=== PATIENT | female | born 1980 | race Caucasian/White ===

== ENCOUNTER 2017-06-05 12:16 | Inpatient (IN) | payer OTHER, BC ==
[2017-06-05] MEDS ORDERED: Sodium Chloride 0.9% 10 ML Syringe FLUSH PRN (13:18)
[2017-06-05] MEDS ORDERED: Misoprostol 200 MCG Tab PO PRN (13:18)
[2017-06-05] MEDS ORDERED: Carboprost Tromethamine 250 MCG/1 ML Amp IM PRN (13:18)
[2017-06-05] MEDS ORDERED: Terbutaline 1 MG/ML SDV SUBCUT PRN (13:18)
[2017-06-05] MEDS ORDERED: Butorphanol 1 MG/ML SDV IVPUSH PRN (13:18)
[2017-06-05] MEDS ORDERED: Sodium Chloride 0.9% 2.5 ML Syringe FLUSH PRN (13:18)
[2017-06-05] MEDS ORDERED: Water For Irrigation,Sterile 1,000 ML Container IRR PRN (13:18)
[2017-06-05] MEDS ORDERED: Methylergonovine 0.2 MG/1 ML Amp IM PRN (13:18)
[2017-06-05] MEDS ORDERED: Nalbuphine 10 MG/1 ML Vial IVPUSH PRN (13:18)
[2017-06-05] MEDS ORDERED: Lidocaine 1% 50 ML MDV INJECT PRN (13:18)
[2017-06-05] MEDS ORDERED: Oxytocin/0.9 % Sodium Chloride 30 UNIT/500 ML BAG IV SCH (13:30)
[2017-06-05] MEDS: Lactated Ringers 1,000 ML IV SCH (14:15)
[2017-06-05 20:52] LABS: CHLORIDE,CL 109 mmol/L (98-110); SODIUM,NA 137 mmol/L (136-146)
[2017-06-06] MEDS ORDERED: ePHEDrine 50 MG/ML SDV ONE (00:11)
[2017-06-06] MEDS ORDERED: Ropivacaine HCl/PF 100 ML ONE (00:12)
[2017-06-06] MEDS ORDERED: fentaNYL 100 MCG/2 ML SDV ONE (00:12)
[2017-06-06] MEDS ORDERED: Ropivacaine 0.2% 2 MG/ML 20 ML SDV ONE (00:12)
[2017-06-06] MEDS: Lactated Ringers 1,000 ML IV SCH ×3 (00:25→21:21)
--- NOTE | 2017-06-06 01:03 | PCM.PRNOTE ---
- Free Text/Narrative Note: Called for a labor epidural for patient c/o labor pain. Patient identified and history reviewed. Discussed procedure and risks including bleeding, infection, nerve pain, nerve damage and unsuccessful epidural. Patient agrees. Sitting up, sterile betadine prep times 3 and sterile drape. 1% lidocaine SQ at L4 #25 Touhy advanced. Pt very sensitive to needle movement, feeling pain with initial pass on left. needle redirected x2. THAIS saline to approximately 7cm. Catheter easily advanced to 12cm. No heme no paresthesia. Test dose 3 ml 1.5% lidocaine with epinephrine 1:200,000. negative reaction. Bolus of fentanyl 100 mcg given with 4 ml 0.2% ropivicaine. Patient reports pain relief after 2 contractions. Level noted to be T10. Ephedrine 10 mg given for c/o nausea, tilted to right. follow up bp 120/72 Epidural drip of 0.2% ropivicaine and Fentanyl 2 mcg/ml started at 8 ml/hr. Use of PCEA bolus of 4 ml every 20 minutes explained to patient. Pt tolerated well pain score 7/10 to 2/10. no complications noted
--- NOTE | 2017-06-06 01:06 | PCM.PREANE ---
Preanesthetic Assessment - Procedure Proposed Procedure: labor epidural - Anesthesia/Transfusion/Family Hx Anesthesia History: No Prior Anesthesia Family History of Anesthesia Reaction: No - Review of Systems General: No Symptoms Pulmonary: No Symptoms Cardiovascular: No Symptoms Gastrointestinal: Other (gerd with ) Neurological: Other (slight lower back scoliosis per pt) Other: Reports: None - Physical Assessment Pulse: 82 O2 Sat by Pulse Oximetry: 96 Respiratory Rate: 20 Blood Pressure: 125/72 Height: 1.7 m Weight: 102.058 kg ASA Class: 2 Mental Status: Alert & Oriented x3 Dentition: Reports: Normal Dentition Thyro-Mental Finger Breadths: 3 Mouth Opening Finger Breadths: 4 ROM/Head Extension: Full Lungs: Clear to Auscultation, Normal Respiratory Effort Cardiovascular: Regular Rate, Regular Rhythm - Lab Values: Laboratory Last Values WBC 10.96 K/uL (4.0-11.0) 06/05/17 20:22 RBC 3.91 M/uL (4.30-5.90) L 06/05/17 20:22 Hgb 11.8 g/dL (12.0-16.0) L 06/05/17 20:22 Hct 34.3 % (36.0-46.0) L 06/05/17 20:22 MCV 87.7 fL (80.0-98.0) 06/05/17 20:22 MCH 30.2 pg (27.0-32.0) 06/05/17 20:22 MCHC 34.4 g/dL (31.0-37.0) 06/05/17 20:22 RDW Std Deviation 43.7 fl (28.0-62.0) 06/05/17 20:22 RDW Coeff of Priyanka 14 % (11.0-15.0) 06/05/17 20:22 Plt Count 225 K/uL (150-400) 06/05/17 20:22 MPV 8.90 fL (7.40-12.00) 06/05/17 20:22 Nucleated RBC % 0.0 /100WBC 06/05/17 20:22 Nucleated RBCs # 0 K/uL 06/05/17 20:22 INR 0.96 (0.86-1.11) 06/05/17 20:22 APTT 30.5 SEC (18.6-31.3) 06/05/17 20:22 Fibrinogen 539 mg/dL (215-411) H 06/05/17 20:22 Sodium 137 mmol/L (136-146) 06/05/17 20:22 Potassium 3.3 mmol/L (3.5-5.1) L 06/05/17 20:22 Chloride 109 mmol/L (98-110) 06/05/17 20:22 Carbon Dioxide 20 mmol/L (21-31) L 06/05/17 20:22 BUN 7 mg/dL (6.0-23.0) 06/05/17 20:22 Creatinine 0.6 mg/dL (0.6-1.5) 06/05/17 20:22 Est Cr Clr Drug Dosing 128.48 mL/min 06/05/17 20:22 Estimated GFR (MDRD) > 60.0 ml/min 06/05/17 20:22 Glucose 89 mg/dL (60-110) 06/05/17 20:22 Calcium 8.7 mg/dL (8.8-10.8) L 06/05/17 20:22 Total Bilirubin 0.2 mg/dL (0.1-1.5) 06/05/17 20:22 AST 17 IU/L (5-40) 06/05/17 20:22 ALT 15 IU/L (8-54) 06/05/17 20:22 Alkaline Phosphatase 173 (40-150) H 06/05/17 20:22 Total Protein 5.7 g/dL (6.0-8.0) L 06/05/17 20:22 Albumin 2.9 g/dL (3.5-5.0) L 06/05/17 20:22 Globulin 2.8 g/dL (2.0-3.5) 06/05/17 20:22 Albumin/Globulin Ratio 1.0 (1.3-2.8) L 06/05/17 20:22 Urine Color YELLOW 06/05/17 12:30 Urine Appearance CLEAR 06/05/17 12:30 Urine pH 6.0 (5.0-8.0) 06/05/17 12:30 Ur Specific [place] 1.025 (1.001-1.035) 06/05/17 12:30 Urine Protein TRACE mg/dL (NEGATIVE) 06/05/17 12:30 Urine Glucose (UA) NEGATIVE mg/dL (NEGATIVE) 06/05/17 12:30 Urine Ketones NEGATIVE mg/dL (NEGATIVE) 06/05/17 12:30 Urine Occult Blood NEGATIVE (NEGATIVE) 06/05/17 12:30 Urine Nitrite NEGATIVE (NEGATIVE) 06/05/17 12:30 Urine Bilirubin NEGATIVE (NEGATIVE) 06/05/17 12:30 Urine Urobilinogen 0.2 EU/dL (<2.0) 06/05/17 12:30 Ur Leukocyte Esterase NEGATIVE (NEGATIVE) 06/05/17 12:30 Blood Type B POSITIVE 06/05/17 14:07 Antibody Screen NEGATIVE 06/05/17 14:07 - Allergies Allergies/Adverse Reactions: Allergies Allergy/AdvReac Type Severity Reaction Status Date / Time amoxicillin Allergy Abdominal Verified 06/05/17 13:13 Pain - Blood Blood Available: Yes Product(s) Available: PRBC - Acknowledgements Anesthesia Type Planned: Epidural Pt an Appropriate Candidate for the Planned Anesthesia: Yes Alternatives and Risks of Anesthesia Discussed w Pt/Guardian: Yes Pt/Guardian Understands and Agrees with Anesthesia Plan: Yes PreAnesthesia Questionnaire - Past Health History Medical/Surgical History: Denies Medical/Surgical History - SUBSTANCE USE Smoking Status *Q: Former Smoker Tobacco Use Within Last Twelve Months: No Second Hand Smoke Exposure: No Recreational Drug Use History: No - CURRENT (IN HOUSE) MEDS Current Meds: Current Medications Butorphanol Tartrate (Stadol) 1 mg IVPUSH ASDIRECTED PRN PRN Reason: Pain Carboprost Tromethamine (Hemabate Ds) 250 mcg IM ASDIRECTED PRN PRN Reason: Post Hemorrhage Lactated Ringer's (Ringers, Lactated) 1,000 mls @ 150 mls/hr IV ASDIRECTED SURI Last Admin: 06/06/17 00:25 Dose: 999 mls/hr Oxytocin/Sodium Chloride (Oxytocin 30 Unit/500 Ml-Ns) 30 unit in 500 mls @ 2 mls/hr IV TITRATE SURI; 2 MUNITS/MIN PRN Reason: Protocol Last Titration: 06/05/17 23:02 Dose: 26 munits/min, 26 mls/hr Lidocaine HCl (Xylocaine 1%) 50 ml INJECT .ONCE PRN PRN Reason: Laceration repair Methylergonovine Maleate (Methergine) 0.2 mg IM ASDIRECTED PRN PRN Reason: Post Hemorrhage Misoprostol (Cytotec) 200 mcg PO .ONCE PRN PRN Reason: Post Hemorrhage Nalbuphine HCl (Nubain) 10 mg IVPUSH ASDIRECTED PRN PRN Reason: Pain (severe 7-10) Sodium Chloride (Saline Flush) 10 ml FLUSH ASDIRECTED PRN PRN Reason: Keep Vein Open Sodium Chloride (Saline Flush) 2.5 ml FLUSH ASDIRECTED PRN PRN Reason: Keep Vein Open Sterile Water (Sterile Water For Irrigation) 1,000 ml IRR ASDIRECTED PRN PRN Reason: delivery Terbutaline Sulfate (Brethine) 0.25 mg SUBCUT ASDIRECTED PRN PRN Reason: Tacysystole Discontinued Medications Ephedrine Sulfate (Ephedrine Sulfate) Confirm Administered Dose 50 mg .ROUTE .STK-MED ONE Stop: 06/06/17 00:12 Fentanyl (Sublimaze) Confirm Administered Dose 300 mcg .ROUTE .STK-MED ONE Stop: 06/06/17 00:13 Ropivacaine (Naropin 0.2%) Confirm Administered Dose 100 mls @ as directed .ROUTE .STK-MED ONE Stop: 06/06/17 00:13 Ropivacaine (Naropin 0.2%) Confirm Administered Dose 20 ml .ROUTE .STK-MED ONE Stop: 06/06/17 00:13
--- NOTE | 2017-06-06 01:57 | PCM.SN ---
- Free Text/Narrative Note: called regarding high epidural level. epidural level found to be t6, rate of 0.2 % ropivicaine with Fentanyl 2 mcg/ml reduced fron 8 ml/hr to 6ml/hr. bp stable. pt on left uterine tilt
[2017-06-06] MEDS ORDERED: Acetaminophen 500 MG Tab PO ONE (08:07)
[2017-06-06] MEDS ORDERED: Ampicillin/Sulbactam Na 3 GM in Sodium Chloride 0.9% 100 ML IV SCH (08:15)
[2017-06-06] MEDS: Ampicillin/Sulbactam Na 3 GM in Sodium Chloride 0.9% 100 ML IV SCH ×4 (08:52→21:32)
[2017-06-06] MEDS ORDERED: Ibuprofen 400 MG Tab PO PRN (09:01)
[2017-06-06] MEDS ORDERED: Benzocaine/Menthol 20%-0.5% Spray 78 GM Cannister TOP PRN (09:01)
[2017-06-06] MEDS ORDERED: Lanolin 100% Cream 7 GM Tube TOP PRN (09:01)
[2017-06-06] MEDS ORDERED: Bisacodyl 10 MG Supp RECTAL PRN (09:01)
[2017-06-06] MEDS ORDERED: oxyCODONE 5 MG Tab PO PRN (09:01)
[2017-06-06] MEDS ORDERED: Docusate Sodium 100 MG Cap PO PRN (09:01)
[2017-06-06] MEDS ORDERED: Witch Hazel Medicated Pads 40/Jar TOP PRN (09:01)
[2017-06-06] MEDS ORDERED: Acetaminophen 500 MG Tab PO PRN ×2 (09:01)
--- NOTE | 2017-06-06 10:11 | OR ---
SURGEON: FABY ACOSTA DATE OF PROCEDURE: 06/06/2017 PREOPERATIVE DIAGNOSIS: A 36-year-old, 1, para 0, at 40 weeks 0 days admitted for premature rupture of membranes, GBS negative. POSTOPERATIVE DIAGNOSIS: Status post normal spontaneous vaginal delivery with premature rupture of membranes, GBS negative, chorioamnionitis. ESTIMATED BLOOD LOSS: 300. ANESTHESIA: Epidural. HISTORY: She is a 36-year-old, G1, P0, at 40 weeks 0 days, who presented with a leakage of fluid from 9 a.m. today prior to delivery. On examination, she was noted to have positive pooling and was admitted for induction of labor secondary to PROM. Pitocin was started and patient was 3, 50, -2. She was subsequently examined. She was 4, 50, -2 and the forebag was ruptured and IUPC was also placed. The Pitocin was increased all the way to 28mu. At this point, the patient wanted an epidural. Pitocin was held and patient was 5, 50, -2. After the epidural, Pitocin was then restarted. Patient recovered and Pitocin was started and titrated up to 8mu. The patient was noted to be fully dilated at about 5:50 a.m. and she was encouraged to push. The patient pushed for about an hour and during pushing the patient was found to have a fever of 101 and Unasyn and Tylenol were given and reed dipper was informed and Procedure Patient made good pushing effort and the patient delivered the head The shoulder was allowed to restitute. Anterior and posterior shoulder was delivered and the body of the was delivered. was placed about the abdomen of the mother. Delayed cord clamping was observed. Cord was clamped and placenta was delivered via controlled cord traction. The perineum was inspected and a first-degree laceration was noted which was sutured with 2-0 Caprosyn. Perineum was then inspected again and noted to be intact with good hemostasis. All needle and instrument counts were correct x2. Dr. Nur was present for the entire procedure. SPARKLE TRUONG /[id number] MEGAN
[2017-06-06] MEDS: Ibuprofen 800 MG Tab PO PRN (13:07)
[2017-06-07] MEDS: Ibuprofen 800 MG Tab PO PRN ×3 (02:59→22:22)
[2017-06-07] MEDS: Ampicillin/Sulbactam Na 3 GM in Sodium Chloride 0.9% 100 ML IV SCH ×4 (03:05→21:17)
--- NOTE | 2017-06-07 05:57 | PCM48HPAN ---
Post Anesthesia Note - EVALUATION WITHIN 48HRS OF ANESTHETIC Vital Signs in Normal Range: Yes Patient Participated in Evaluation: Yes Respiratory Function Stable: Yes Airway Patent: Yes Cardiovascular Function Stable: Yes Hydration Status Stable: Yes Pain Control Satisfactory: Yes Nausea and Vomiting Control Satisfactory: Yes Mental Status Recovered: Yes
--- NOTE | 2017-06-07 08:44 | PCM.PNPP ---
<Zulema Mcdonald - Last Filed: 06/07/17 08:39> - General Info Date of Service: 06/07/17 Functional Status: Reports: Pain Controlled, Tolerating Diet, Ambulating, Urinating - Review of Systems General: Reports: Fever. Denies: Weakness, Fatigue Pulmonary: Denies: Shortness of Breath, Pleuritic Chest Pain, Cough Cardiovascular: Denies: Chest Pain, Palpitations, Dyspnea on Exertion Gastrointestinal: Denies: Abdominal Pain Genitourinary: Denies: Dysuria - General Info Date of Service: 06/07/17 - Patient Data Vital Signs - Most Recent: Last Vital Signs Temp 38.6 C H 06/07/17 03:33 Pulse 119 H 06/07/17 03:33 Resp 16 06/07/17 03:33 BP 131/89 06/07/17 03:33 Pulse Ox 96 06/07/17 03:33 Weight - Most Recent: 102.058 kg Lab Results - Last 24 Hours: Laboratory Results - last 24 hr 06/07/17 Range/Units 05:53 WBC 16.47 H (4.0-11.0) K/uL RBC 3.91 L (4.30-5.90) M/uL Hgb 11.7 L (12.0-16.0) g/dL Hct 34.3 L (36.0-46.0) % MCV 87.7 (80.0-98.0) fL MCH 29.9 (27.0-32.0) pg MCHC 34.1 (31.0-37.0) g/dL RDW Std Deviation 44.2 (28.0-62.0) fl RDW Coeff of Priyanka 14 (11.0-15.0) % Plt Count 206 (150-400) K/uL MPV 8.50 (7.40-12.00) fL Add Manual Diff YES Neutrophils % (Manual) 88 H (48.0-80.0) % Band Neutrophils % 4 % Lymphocytes % (Manual) 4 L (16.0-40.0) % Monocytes % (Manual) 4 (0.0-15.0) % Nucleated RBC % 0.0 /100WBC Absolute Seg Neuts 14.5 H (1.4-5.7) Band Neutrophils # 0.7 Lymphocytes # (Manual) 0.7 (0.6-2.4) Monocytes # (Manual) 0.7 (0.0-0.8) Nucleated RBCs # 0 K/uL Med Orders - Current: Current Medications Acetaminophen (Tylenol Extra Strength) 500 mg PO Q4H PRN PRN Reason: Pain Acetaminophen (Tylenol Extra Strength) 1,000 mg PO Q4H PRN PRN Reason: Pain Benzocaine/Menthol (Dermoplast Pain Relief 20%-0.5% [place]) 78 gm TOP ASDIRECTED PRN PRN Reason: Perineal Comfort Measure Last Admin: 06/06/17 13:07 Dose: 1 canister Bisacodyl (Dulcolax) 10 mg RECTAL .ONCE PRN PRN Reason: Constipation Butorphanol Tartrate (Stadol) 1 mg IVPUSH ASDIRECTED PRN PRN Reason: Pain Carboprost Tromethamine (Hemabate Ds) 250 mcg IM ASDIRECTED PRN PRN Reason: Post Hemorrhage Docusate Sodium (Colace) 100 mg PO BID PRN PRN Reason: Constipation Emollient Ointment (Lansinoh Hpa) 0 gm TOP ASDIRECTED PRN PRN Reason: Sore Nipples Lactated Ringer's (Ringers, Lactated) 1,000 mls @ 150 mls/hr IV ASDIRECTED SURI Last Admin: 06/06/17 21:21 Dose: 150 mls/hr Oxytocin/Sodium Chloride (Oxytocin 30 Unit/500 Ml-Ns) 30 unit in 500 mls @ 2 mls/hr IV TITRATE SURI; 2 MUNITS/MIN PRN Reason: Protocol Last Titration: 06/06/17 03:18 Dose: 8 munits/min, 8 mls/hr Ampicillin Sodium/Sulbactam (Sodium 3 gm/ Sodium Chloride) 100 mls @ 200 mls/ hr IV Q6H SURI Last Admin: 06/07/17 03:05 Dose: 200 mls/hr Ibuprofen (Motrin) 400 mg PO Q4H PRN PRN Reason: Pain Ibuprofen (Motrin) 800 mg PO Q6H PRN PRN Reason: Pain Last Admin: 06/07/17 02:59 Dose: 800 mg Lidocaine HCl (Xylocaine 1%) 50 ml INJECT .ONCE PRN PRN Reason: Laceration repair Methylergonovine Maleate (Methergine) 0.2 mg IM ASDIRECTED PRN PRN Reason: Post Hemorrhage Misoprostol (Cytotec) 200 mcg PO .ONCE PRN PRN Reason: Post Hemorrhage Nalbuphine HCl (Nubain) 10 mg IVPUSH ASDIRECTED PRN PRN Reason: Pain (severe 7-10) Oxycodone HCl (Oxycodone) 5 mg PO Q2H PRN PRN Reason: Pain Sodium Chloride (Saline Flush) 10 ml FLUSH ASDIRECTED PRN PRN Reason: Keep Vein Open Sodium Chloride (Saline Flush) 2.5 ml FLUSH ASDIRECTED PRN PRN Reason: Keep Vein Open Sterile Water (Sterile Water For Irrigation) 1,000 ml IRR ASDIRECTED PRN PRN Reason: delivery Last Admin: 06/06/17 09:00 Dose: 1,000 ml Terbutaline Sulfate (Brethine) 0.25 mg SUBCUT ASDIRECTED PRN PRN Reason: Tacysystole [place] (Tucks) 1 pad TOP ASDIRECTED PRN PRN Reason: comfort care Last Admin: 06/06/17 13:06 Dose: 1 tub Discontinued Medications Acetaminophen (Tylenol Extra Strength) 1,000 mg PO ONETIME ONE Stop: 06/06/17 08:08 Last Admin: 06/06/17 08:35 Dose: 1,000 mg Ephedrine Sulfate (Ephedrine Sulfate) Confirm Administered Dose 50 mg .ROUTE .STK-MED ONE Stop: 06/06/17 00:12 Last Admin: 06/06/17 02:20 Dose: Not Given Fentanyl (Sublimaze) Confirm Administered Dose 300 mcg .ROUTE .STK-MED ONE Stop: 06/06/17 00:13 Last Admin: 06/06/17 02:20 Dose: Not Given Ropivacaine (Naropin 0.2%) Confirm Administered Dose 100 mls @ as directed .ROUTE .STK-MED ONE Stop: 06/06/17 00:13 Last Admin: 06/06/17 02:20 Dose: Not Given Ampicillin Sodium/Sulbactam (Sodium 3 gm/ Sodium Chloride) 100 mls @ 200 mls/ hr IV Q6H SURI Stop: 06/07/17 02:44 Last Admin: 06/06/17 14:24 Dose: Not Given Ampicillin Sodium/Sulbactam (Sodium 3 gm/ Sodium Chloride) 100 mls @ 200 mls/ hr IV Q6H [facility] Stop: 06/07/17 02:44 Last Admin: 06/06/17 14:54 Dose: 200 mls/hr Ropivacaine (Naropin 0.2%) Confirm Administered Dose 20 ml .ROUTE .STK-MED ONE Stop: 06/06/17 00:13 Last Admin: 06/06/17 02:20 Dose: Not Given - Infant Interaction Infant Disposition, : Leon in Room with Family Infant Feeding: Attempted ; Nursed Fair/Poor Support Person: - Recovery Exam Fundal Tone: Firm Fundal Level: 1 Fingerbreadths Below Umbilicus Fundal Placement: Midline Lochia Amount: Scant Lochia Color: Rubra/Red Perineum Description: Intact, Minimal Bruising/Swelling Other Perinuem Description: 1st degree laceration with repair Episiotomy/Laceration: Approximated Bladder Status: Voiding - Exam General: Alert, Oriented Neck: Supple Lungs: Clear to Auscultation, Normal Respiratory Effort Cardiovascular: Regular Rate, Regular Rhythm GI/Abdominal Exam: Normal Bowel Sounds, Soft, Non-Tender, No Distention, Pelvis Stable Extremities: Normal Inspection, Normal Range of Motion, Non-Tender, Normal Capillary Refill, Pedal Edema (trace) Skin: Warm, Dry, Intact - Problem List & Annotations (1) Vaginal delivery SNOMED Code(s): 738882526 Code(s): O80 - ENCOUNTER FOR FULL-TERM UNCOMPLICATED DELIVERY Status: Acute Current Visit: Yes - Problem List Review Problem List Initiated/Reviewed/Updated: Yes - Assessment Assessment:: PPD #1 s/p , chorioamnionitis. Elevated WBC. Vital signs are stable. - Plan Plan:: Continue Ampicillin dose today. Continue routine post- cares. Infant currently on antibiotics for the next 3 days. <Renita Arora - Last Filed: 06/07/17 10:46> - Patient Data Vital Signs - Most Recent: Last Vital Signs Temp 38.6 C H 06/07/17 03:33 Pulse 119 H 06/07/17 03:33 Resp 16 06/07/17 03:33 BP 131/89 06/07/17 03:33 Pulse Ox 96 06/07/17 03:33 Lab Results - Last 24 Hours: Laboratory Results - last 24 hr 06/07/17 Range/Units 05:53 WBC 16.47 H (4.0-11.0) K/uL RBC 3.91 L (4.30-5.90) M/uL Hgb 11.7 L (12.0-16.0) g/dL Hct 34.3 L (36.0-46.0) % MCV 87.7 (80.0-98.0) fL MCH 29.9 (27.0-32.0) pg MCHC 34.1 (31.0-37.0) g/dL RDW Std Deviation 44.2 (28.0-62.0) fl RDW Coeff of Priyanka 14 (11.0-15.0) % Plt Count 206 (150-400) K/uL MPV 8.50 (7.40-12.00) fL Add Manual Diff YES Neutrophils % (Manual) 88 H (48.0-80.0) % Band Neutrophils % 4 % Lymphocytes % (Manual) 4 L (16.0-40.0) % Monocytes % (Manual) 4 (0.0-15.0) % Nucleated RBC % 0.0 /100WBC Absolute Seg Neuts 14.5 H (1.4-5.7) Band Neutrophils # 0.7 Lymphocytes # (Manual) 0.7 (0.6-2.4) Monocytes # (Manual) 0.7 (0.0-0.8) Nucleated RBCs # 0 K/uL Med Orders - Current: Current Medications Acetaminophen (Tylenol Extra Strength) 500 mg PO Q4H PRN PRN Reason: Pain Last Admin: 06/07/17 09:17 Dose: 500 mg Acetaminophen (Tylenol Extra Strength) 1,000 mg PO Q4H PRN PRN Reason: Pain Benzocaine/Menthol (Dermoplast Pain Relief 20%-0.5% [place]) 78 gm TOP ASDIRECTED PRN PRN Reason: Perineal Comfort Measure Last Admin: 06/06/17 13:07 Dose: 1 canister Bisacodyl (Dulcolax) 10 mg RECTAL .ONCE PRN PRN Reason: Constipation Butorphanol Tartrate (Stadol) 1 mg IVPUSH ASDIRECTED PRN PRN Reason: Pain Carboprost Tromethamine (Hemabate Ds) 250 mcg IM ASDIRECTED PRN PRN Reason: Post Hemorrhage Docusate Sodium (Colace) 100 mg PO BID PRN PRN Reason: Constipation Last Admin: 06/07/17 09:18 Dose: 100 mg Emollient Ointment (Lansinoh Hpa) 0 gm TOP ASDIRECTED PRN PRN Reason: Sore Nipples Lactated Ringer's (Ringers, Lactated) 1,000 mls @ 150 mls/hr IV ASDIRECTED SURI Last Admin: 06/06/17 21:21 Dose: 150 mls/hr Oxytocin/Sodium Chloride (Oxytocin 30 Unit/500 Ml-Ns) 30 unit in 500 mls @ 2 mls/hr IV TITRATE SURI; 2 MUNITS/MIN PRN Reason: Protocol Last Titration: 06/06/17 03:18 Dose: 8 munits/min, 8 mls/hr Ampicillin Sodium/Sulbactam (Sodium 3 gm/ Sodium Chloride) 100 mls @ 200 mls/ hr IV Q6H SURI Last Admin: 06/07/17 09:16 Dose: 200 mls/hr Ibuprofen (Motrin) 400 mg PO Q4H PRN PRN Reason: Pain Ibuprofen (Motrin) 800 mg PO Q6H PRN PRN Reason: Pain Last Admin: 06/07/17 02:59 Dose: 800 mg Lidocaine HCl (Xylocaine 1%) 50 ml INJECT .ONCE PRN PRN Reason: Laceration repair Methylergonovine Maleate (Methergine) 0.2 mg IM ASDIRECTED PRN PRN Reason: Post Hemorrhage Misoprostol (Cytotec) 200 mcg PO .ONCE PRN PRN Reason: Post Hemorrhage Nalbuphine HCl (Nubain) 10 mg IVPUSH ASDIRECTED PRN PRN Reason: Pain (severe 7-10) Oxycodone HCl (Oxycodone) 5 mg PO Q2H PRN PRN Reason: Pain Last Admin: 06/07/17 09:17 Dose: 5 mg Sodium Chloride (Saline Flush) 10 ml FLUSH ASDIRECTED PRN PRN Reason: Keep Vein Open Sodium Chloride (Saline Flush) 2.5 ml FLUSH ASDIRECTED PRN PRN Reason: Keep Vein Open Sterile Water (Sterile Water For Irrigation) 1,000 ml IRR ASDIRECTED PRN PRN Reason: delivery Last Admin: 06/06/17 09:00 Dose: 1,000 ml Terbutaline Sulfate (Brethine) 0.25 mg SUBCUT ASDIRECTED PRN PRN Reason: Tacysystole [place] (Tucks) 1 pad TOP ASDIRECTED PRN PRN Reason: comfort care Last Admin: 06/06/17 13:06 Dose: 1 tub Discontinued Medications Acetaminophen (Tylenol Extra Strength) 1,000 mg PO ONETIME ONE Stop: 06/06/17 08:08 Last Admin: 06/06/17 08:35 Dose: 1,000 mg Ephedrine Sulfate (Ephedrine Sulfate) Confirm Administered Dose 50 mg .ROUTE .STK-MED ONE Stop: 06/06/17 00:12 Last Admin: 06/06/17 02:20 Dose: Not Given Fentanyl (Sublimaze) Confirm Administered Dose 300 mcg .ROUTE .STK-MED ONE Stop: 06/06/17 00:13 Last Admin: 06/06/17 02:20 Dose: Not Given Ropivacaine (Naropin 0.2%) Confirm Administered Dose 100 mls @ as directed .ROUTE .STK-MED ONE Stop: 06/06/17 00:13 Last Admin: 06/06/17 02:20 Dose: Not Given Ampicillin Sodium/Sulbactam (Sodium 3 gm/ Sodium Chloride) 100 mls @ 200 mls/ hr IV Q6H [facility] Stop: 06/07/17 02:44 Last Admin: 06/06/17 14:24 Dose: Not Given Ampicillin Sodium/Sulbactam (Sodium 3 gm/ Sodium Chloride) 100 mls @ 200 mls/ hr IV Q6H [facility] Stop: 06/07/17 02:44 Last Admin: 06/06/17 14:54 Dose: 200 mls/hr Ropivacaine (Naropin 0.2%) Confirm Administered Dose 20 ml .ROUTE .STK-MED ONE Stop: 06/06/17 00:13 Last Admin: 06/06/17 02:20 Dose: Not Given - Assessment Assessment:: Patient had a mildly elevated temperature this am--thus will continue unasyn. - Plan Plan:: Continue unasyn given febrile early this am. Otherwise, patient is feeling well. Continue cares.
[2017-06-08] MEDS: Ampicillin/Sulbactam Na 3 GM in Sodium Chloride 0.9% 100 ML IV SCH (03:05)
--- NOTE | 2017-06-08 06:10 | PCM.PNPP ---
- General Info Date of Service: 06/08/17 Subjective Update: patient is feeling well overall, ambulating, voiding, lochia is minimal. Denies fever or chills. She is ready to be discharged. Functional Status: Reports: Pain Controlled, Tolerating Diet, Ambulating, Urinating - Review of Systems General: Denies: Fever, Weakness Cardiovascular: Denies: Chest Pain, Palpitations, Lightheadedness Gastrointestinal: Denies: Abdominal Pain Genitourinary: Denies: Flank Pain Psychiatric: Reports: No Symptoms - General Info Date of Service: 06/08/17 - Patient Data Vital Signs - Most Recent: Last Vital Signs Temp 36.5 C 06/08/17 04:35 Pulse 73 06/08/17 04:35 Resp 14 06/08/17 04:35 BP 108/56 L 06/08/17 04:35 Pulse Ox 98 06/08/17 04:35 Weight - Most Recent: 102.058 kg Lab Results - Last 24 Hours: Laboratory Results - last 24 hr 06/07/17 Range/Units 05:53 WBC 16.47 H (4.0-11.0) K/uL RBC 3.91 L (4.30-5.90) M/uL Hgb 11.7 L (12.0-16.0) g/dL Hct 34.3 L (36.0-46.0) % MCV 87.7 (80.0-98.0) fL MCH 29.9 (27.0-32.0) pg MCHC 34.1 (31.0-37.0) g/dL RDW Std Deviation 44.2 (28.0-62.0) fl RDW Coeff of Priyanka 14 (11.0-15.0) % Plt Count 206 (150-400) K/uL MPV 8.50 (7.40-12.00) fL Add Manual Diff YES Neutrophils % (Manual) 88 H (48.0-80.0) % Band Neutrophils % 4 % Lymphocytes % (Manual) 4 L (16.0-40.0) % Monocytes % (Manual) 4 (0.0-15.0) % Nucleated RBC % 0.0 /100WBC Absolute Seg Neuts 14.5 H (1.4-5.7) Band Neutrophils # 0.7 Lymphocytes # (Manual) 0.7 (0.6-2.4) Monocytes # (Manual) 0.7 (0.0-0.8) Nucleated RBCs # 0 K/uL Med Orders - Current: Current Medications Acetaminophen (Tylenol Extra Strength) 500 mg PO Q4H PRN PRN Reason: Pain Last Admin: 06/07/17 09:17 Dose: 500 mg Acetaminophen (Tylenol Extra Strength) 1,000 mg PO Q4H PRN PRN Reason: Pain Benzocaine/Menthol (Dermoplast Pain Relief 20%-0.5% [place]) 78 gm TOP ASDIRECTED PRN PRN Reason: Perineal Comfort Measure Last Admin: 06/06/17 13:07 Dose: 1 canister Bisacodyl (Dulcolax) 10 mg RECTAL .ONCE PRN PRN Reason: Constipation Butorphanol Tartrate (Stadol) 1 mg IVPUSH ASDIRECTED PRN PRN Reason: Pain Carboprost Tromethamine (Hemabate Ds) 250 mcg IM ASDIRECTED PRN PRN Reason: Post Hemorrhage Docusate Sodium (Colace) 100 mg PO BID PRN PRN Reason: Constipation Last Admin: 06/07/17 09:18 Dose: 100 mg Emollient Ointment (Lansinoh Hpa) 0 gm TOP ASDIRECTED PRN PRN Reason: Sore Nipples Lactated Ringer's (Ringers, Lactated) 1,000 mls @ 150 mls/hr IV ASDIRECTED SURI Last Admin: 06/06/17 21:21 Dose: 150 mls/hr Oxytocin/Sodium Chloride (Oxytocin 30 Unit/500 Ml-Ns) 30 unit in 500 mls @ 2 mls/hr IV TITRATE SURI; 2 MUNITS/MIN PRN Reason: Protocol Last Titration: 06/06/17 03:18 Dose: 8 munits/min, 8 mls/hr Ampicillin Sodium/Sulbactam (Sodium 3 gm/ Sodium Chloride) 100 mls @ 200 mls/ hr IV Q6H SURI Last Admin: 06/08/17 03:05 Dose: 200 mls/hr Ibuprofen (Motrin) 400 mg PO Q4H PRN PRN Reason: Pain Ibuprofen (Motrin) 800 mg PO Q6H PRN PRN Reason: Pain Last Admin: 06/07/17 22:22 Dose: 800 mg Lidocaine HCl (Xylocaine 1%) 50 ml INJECT .ONCE PRN PRN Reason: Laceration repair Methylergonovine Maleate (Methergine) 0.2 mg IM ASDIRECTED PRN PRN Reason: Post Hemorrhage Misoprostol (Cytotec) 200 mcg PO .ONCE PRN PRN Reason: Post Hemorrhage Nalbuphine HCl (Nubain) 10 mg IVPUSH ASDIRECTED PRN PRN Reason: Pain (severe 7-10) Oxycodone HCl (Oxycodone) 5 mg PO Q2H PRN PRN Reason: Pain Last Admin: 06/07/17 09:17 Dose: 5 mg Sodium Chloride (Saline Flush) 10 ml FLUSH ASDIRECTED PRN PRN Reason: Keep Vein Open Sodium Chloride (Saline Flush) 2.5 ml FLUSH ASDIRECTED PRN PRN Reason: Keep Vein Open Sterile Water (Sterile Water For Irrigation) 1,000 ml IRR ASDIRECTED PRN PRN Reason: delivery Last Admin: 06/06/17 09:00 Dose: 1,000 ml Terbutaline Sulfate (Brethine) 0.25 mg SUBCUT ASDIRECTED PRN PRN Reason: Tacysystole [place] (Tucks) 1 pad TOP ASDIRECTED PRN PRN Reason: comfort care Last Admin: 06/06/17 13:06 Dose: 1 tub Discontinued Medications Acetaminophen (Tylenol Extra Strength) 1,000 mg PO ONETIME ONE Stop: 06/06/17 08:08 Last Admin: 06/06/17 08:35 Dose: 1,000 mg Ephedrine Sulfate (Ephedrine Sulfate) Confirm Administered Dose 50 mg .ROUTE .STK-MED ONE Stop: 06/06/17 00:12 Last Admin: 06/06/17 02:20 Dose: Not Given Fentanyl (Sublimaze) Confirm Administered Dose 300 mcg .ROUTE .STK-MED ONE Stop: 06/06/17 00:13 Last Admin: 06/06/17 02:20 Dose: Not Given Ropivacaine (Naropin 0.2%) Confirm Administered Dose 100 mls @ as directed .ROUTE .STK-MED ONE Stop: 06/06/17 00:13 Last Admin: 06/06/17 02:20 Dose: Not Given Ampicillin Sodium/Sulbactam (Sodium 3 gm/ Sodium Chloride) 100 mls @ 200 mls/ hr IV Q6H [facility] Stop: 06/07/17 02:44 Last Admin: 06/06/17 14:24 Dose: Not Given Ampicillin Sodium/Sulbactam (Sodium 3 gm/ Sodium Chloride) 100 mls @ 200 mls/ hr IV Q6H [facility] Stop: 06/07/17 02:44 Last Admin: 06/06/17 14:54 Dose: 200 mls/hr Ropivacaine (Naropin 0.2%) Confirm Administered Dose 20 ml .ROUTE .[facility]-MED ONE Stop: 06/06/17 00:13 Last Admin: 06/06/17 02:20 Dose: Not Given - Interaction Infant Disposition, : in Room with Family Feeding: Attempted ; Nursed Fair/Poor Support Person: - Recovery Exam Fundal Tone: Firm Fundal Level: 1 Fingerbreadths Below Umbilicus Fundal Placement: Midline Lochia Amount: Scant Lochia Color: Rubra/Red Perineum Description: Intact, Minimal Bruising/Swelling Other Perinuem Description: 1st degree laceration with repair Episiotomy/Laceration: None Bladder Status: Nonpalpable, Voiding Urinary Elimination: Voided - Exam General: Alert, Oriented Lungs: Normal Respiratory Effort Cardiovascular: Regular Rate, Regular Rhythm GI/Abdominal Exam: Normal Bowel Sounds, Soft Extremities: Pedal Edema (Trace) Skin: Warm, Dry, Intact - Problem List Review Problem List Initiated/Reviewed/Updated: Yes - My Orders Last 24 Hours: My Active Orders 06/08/17 06:07 Ready for Discharge [RC] PER UNIT ROUTINE - Assessment Assessment:: PPD 2 status post Maternal fever with labor - Plan Plan:: patient has remained afebrile for greater than 24 hours. Will discontinue iv antibiotics. May allow discharge to home later today. Rooming in to be arranged since baby on iv antibiotics. Discharge instructions reviewed. Follow up at [facility] 6 weeks. Infection and bleeding warnings reviewed.
== END 2017-06-08 17:20 | disposition home or self-care (01) | DRG 774 ==
LOC: MW.OBCHECK 12:16 → MW.OB 12:21 → MW.OBCHECK 14:04 → OBSVTOIN 06-06 08:21 → MW.OB 06-06 12:41
PROVIDERS: ADMIT Obstetrics & Gynecology; ATTEND Obstetrics & Gynecology
PROC: 10E0XZZ Delivery of Products of Conception, External Approach (ICD-10-PCS; principal; 2017-06-06)
PROC: 0HQ9XZZ Repair Perineum Skin, External Approach (ICD-10-PCS; 2017-06-06)
PROC: 10H07YZ Insertion of Other Device into Products of Conception, Via Natural or Artificial Opening (ICD-10-PCS; 2017-06-06)
DX: O42.02 Full-term premature rupture of membranes, onset of labor within 24 hours of rupture (principal); O75.2 Pyrexia during labor, not elsewhere classified; O41.1230 Chorioamnionitis, third trimester, not applicable or unspecified; O70.0 First degree perineal laceration during delivery; Z3A.40 40 weeks gestation of pregnancy; Z37.0 Single live birth
CPT/HCPCS: 01967; 36415; 59025; 59409; 80053; 81003; 85025; 85027; 85384; 85610; 85730; 86850; 86900; 86901; 88307; A9270-GY; J0295; J2590; J7030; J7120